=== PATIENT | female | born 1960 | race Caucasian/White ===

== ENCOUNTER 2016-08-30 13:06 | Day surgery (SDC) | payer OTHER ==
[~2016-08-30] VITALS: Ht 165.1 cm; Wt 67.6 kg
[~2016-08-30 13:06] MED LIST: Sodium Chloride LOK Flush 10 mL Syringe IV PRN; fentaNYL-PF 50 mCg/mL 2 mL Inj IVPUSH PRN
[2016-08-30 13:55] VITALS: BP 136/70; PULSE 62; RESP 16; O2SAT 100
[2016-08-30] MEDS ORDERED: [UNRECOGNIZED DRUG - CODE] PO (13:56)
[2016-08-30] MEDS: 0.9% Sodium Chloride 1,000 ML IV SCH ×2 (14:04→15:14)
[2016-08-30 15:40] VITALS: BP 109/63; PULSE 67; RESP 16; O2SAT 98
--- NOTE | 2016-08-30 15:40 | PCM.ENDCOL ---
Colonoscopy Physician Kwame Bacon MD Pre Procedure Diagnosis: Screening and history of polyps Post Procedure Dx & Findings: Lipoma hemorrhoids Procedure Colonoscopy PROCEDURE IN DETAIL: Prep adequate Withdrawal time 11 minutes After unremarkable rectal examination the Olympus video colonoscope was inserted patient's anal canal and was advanced to cecum. Landmarks were identified including the ileocecal valve and appendiceal orifice. Scope was withdrawn systematically. Visualized colonic mucosa showed healthy shiny mucosa with normal healthy-appearing vasculature. In the cecum, there was a 1-1/2 cm prominence with positive pillow sign. Biopsy obtained. At the biopsy site fatty tissue noted. Most likely lipoma. In the rectum retroflexion was done which showed hemorrhoids. Anal canal was inspected carefully on the way out and hemorrhoids noted. Impression Lipoma Personal history of colon polyp Hemorrhoids Recommendation Repeat colonoscopy 5 years Presedation Assessment Risks and Benefits Informed consent was obtained from the patient after all risks and benefits including but not limited to drug reaction, infection, pain, bleeding, perforation, as well as alternatives were discussed. Patient monitoring Continuous pulse oximetry, cardiac monitoring, blood pressure monitoring, IV access, and oxygen at 2L per nasal cannula. Periprocedural Fentanyl: Fentanyl 150mcg Incrementally Midazolam: Midazolam 6mg Incrementally Complications There were no periprocedural complications identified. Post Procedure Plan Post Procedure Recommendations 1. Restrict activities today. 2. Resume normal activities in the morning. 3. Resume medications. 4. Patient informed of normal post procedure side effects as bloating, drowsiness, blood streaking in the stool. 5. average risk CRCS. If colon polyps come back as: -Hyperplastic- can repeat colonoscopy in 10 years -Tubular adenoma- repeat colonoscopy in 5 years -Tubulovillous/villous adenoma- repeat colonoscopy in 3 years -If any dysplasia- return to clinic as soon as possible 6. Please don't hesitate to call me with any questions. Kwame Bacon MD Aug 30, 2016 15:40
[2016-08-30 15:50] VITALS: BP 102/54; PULSE 73; RESP 16; O2SAT 94
[2016-08-30 15:57] VITALS: BP 121/65; PULSE 66; RESP 16; O2SAT 99
--- NOTE | 2016-09-01 13:24 | PATH ---
SURGICAL PATHOLOGY Attending Physician:Kwame Bacon M.D. CASE STATUS: Signed Out PATIENT NAME: AZEEM GARZA PID: [id number] : 1960 DATE COLLECTED:08/30/2016 00:00 SPECIMEN: Colon, Biopsy CLINICAL HISTORY: 1. CECAL COLON BX FINAL DIAGNOSIS: 1.CECAL COLON BIOPSY: COLONIC MUCOSA WITH NO DIAGNOSTIC ALTERATIONS. Negative for inflammation, dysplasia and malignancy. ICD10 code R10.9 GROSS DESCRIPTION: The specimen is received in one formalin filled container labeled with the patient's name, sublabeled "cecal" and consists of a less than 0.1 CM portion of tissue which is entirely submitted in one cassette. 08/31/2016 [facility] MICRO DESCRIPTION: See diagnosis. ICD-9 CODES: CPT CODES: 1: 66004 Electronically Signed Out Deepthi Posada MD [facility], [place] [address] Technical component performed at [facility], [address] [place] [address] Ave[address], [place], [address]
== END 2016-08-30 23:59 | disposition home or self-care (01) ==
LOC: END 13:06
PROVIDERS: ATTEND Internal Medicine
DX: Z12.11 Encounter for screening for malignant neoplasm of colon (principal); Z86.010 Personal history of colon polyps; K64.9 Unspecified hemorrhoids
CPT/HCPCS: 45380; G0500; J7030